=== PATIENT | female | born 1960 | race African-American/Black ===

== ENCOUNTER 2021-01-12 06:54 | Outpatient (CLI) | payer MEDICARE, SELFPAY ==
--- NOTE | 2021-01-22 13:23 | WPDHOMESLEEP ---
Sleep Study - Home Unattended Date of Study: 01/12/21 <Alicia Mauro DO - Last Filed: 01/22/21 13:44> Ordering Provider: Codi Scanlon NP <Alicia Mauro DO - Last Filed: 01/22/21 13:44> Interpreting Provider: Alicia Mauro DO <Alicia Mauro DO - Last Filed: 01/22/21 13:44> Home Sleep Study Type: Apnea Link Air <Alicia Mauro DO - Last Filed: 01/22/21 13:44> Height: 1.68 m <Alicia Mauro DO - Last Filed: 01/22/21 13:44> Weight: 111.13 kg <Alicia Mauro DO - Last Filed: 01/22/21 13:44> Body Mass Index: 39.5 <Alicia Mauro DO - Last Filed: 01/22/21 13:44> Neck Circumference (inches): 17 <Alicia Mauro DO - Last Filed: 01/22/21 13:44> [place]: 4 <Alicia Mauro DO - Last Filed: 01/22/21 13:44> Reason for Sleep Study The patient states that she began experiencing apneic episodes and night him with a week short breath for the past few months. <Alicia Mauro DO - Last Filed: 01/22/21 13:44> Sleep History The patient is a 60-year-old female with hypertension and had a home sleep test ordered by her primary care due to sleep disturbances . The patient states that she often awakens from sleep short of breath. She frequently awakens at night with heartburn, belching or cough. He constantly snores loudly enough that others complain. She really has trouble sleeping when she have [place]. Six he frequently wakes up gasping for breath throughout the night. She rarely sweats excessively at night. She rarely has heart palpitations throughout the night. She frequently falls asleep during the day but never while driving. The patient denies sleep paralysis, cataplexy hypnagogic/hypnopompic hallucinations. She is currently retired. She rarely has nightmares. She often has thoughts racing through her mind and frequently feels anxious. She rarely feels sad or depressed. She frequently has muscular tension and notices parts of her body jerk. She takes denies kicking throughout the night. She frequently experiences crawling and aching feelings in her legs. She frequently experiences leg pain throughout the night. She denies grinding her teeth during sleep waking up with morning to help pain. She is really bothered by pain during the day but is often awakened by pain throughout the night. She often wakes up feeling stiff in the morning with sore and achy muscles. She currently goes to bed at 10:00 p.m. on the week days and does not have specified bedtime on the weekends. It does not take her longer to fall asleep but she does take melatonin. She wakes up frequently throughout the night to urinate. She typically gets 6-7 hours of sleep most nights. When she awakens throughout the night she will sometimes to possible sore rate. She usually wakes up at 8:00 a.m. on the the weekdays and weekends. She currently lives at home alone. She denies drinking any caffeinated beverages 2 hours prior to bedtime. She does not engage in physical exercise before bedtime. He does not report falling asleep but she will watch television. She does takes naps in the afternoon and evening and she does feel refreshed afterwards. The patient denies tobacco, alcohol recreational drug use. She does drink 2 caffeinated beverages per week. <Alicia Mauro DO - Last Filed: 01/22/21 13:44> [facility]LY [facility], [facility] Past Medical History Medical History: Medical History Acid reflux Hypertension <Alicia Mauro DO - Last Filed: 01/22/21 13:44> Surgical History Surgical History: Surgical History History of eye surgery History of partial hysterectomy History of total knee replacement <Alicia Mauro DO - Last Filed: 01/22/21 13:44> Family History Family History: Family History (Reviewed 01/22/21 @ 1
[2021-01-22 13:32] VITALS: BMI 39.5
== END 2021-01-13 13:49 | disposition home or self-care (01) ==
LOC: ANHCSM 06:55
PROVIDERS: PCP Family Medicine; Visit Provider Nurse Practitioner
DX: G47.10 Hypersomnia, unspecified (principal); G47.33 Obstructive sleep apnea (adult) (pediatric)
CPT/HCPCS: 95806

== ENCOUNTER 2021-01-14 11:35 | Outpatient (CLI) | payer MEDICARE, SELFPAY ==
--- NOTE | ~2021-01-14 | MM_ITS ---
EXAMINATION: MM screening joey BI w olivier HISTORY: Screening mammogram TECHNIQUE: Craniocaudal and mediolateral oblique 3-D tomosynthesis images were obtained and synthetic 2-D images were generated. CAD analysis was submitted and interpreted. COMPARISON: No prior mammogram is available for comparison at this institution. BREAST PARENCHYMAL COMPOSITION: The breasts are heterogeneously dense, which may obscure small masses . FINDINGS: RIGHT BREAST: There is no evidence of suspicious mass, calcification, or architectural distortion to suggest malignancy. LEFT BREAST: There is a possible mass in the posterior third of the inner breast best appreciated 6 c m from the nipple on the craniocaudal view. IMPRESSION: 1. Possible left breast mass. 2. Additional mammographic views and possible breast ultrasound are recommended. BI-RADS Category 0: Incomplete: Needs additional imaging evaluation. Reviewed, dictated and finalized at location A. IMPRESSION: 1. Possible left breast mass. 2. Additional mammographic views and possible breast ultrasound are recommended . BI-RADS Category 0: Incomplete: Needs additional imaging evaluation.
== END 2021-01-14 11:36 | disposition home or self-care (01) ==
PROVIDERS: PCP Nurse Practitioner; Visit Provider Nurse Practitioner
DX: Z12.31 Encounter for screening mammogram for malignant neoplasm of breast (principal); R92.8 Other abnormal and inconclusive findings on diagnostic imaging of breast
CPT/HCPCS: 77063; 77067

== ENCOUNTER 2021-02-04 12:02 | Outpatient (CLI) | payer MEDICARE, SELFPAY ==
--- NOTE | ~2021-02-04 | MMUS_ITS ---
EXAMINATION: MM diagnostic joey BI w olivier, US breast BI complete HISTORY: Possible left breast mass reported on 01/14/2021 screening mammogram. Probable benign right breast masses reported on outside imaging examination. TECHNIQUE: Additional 3-D tomosynthesis images of both breasts were performed and synthetic 2-D image s were generated. CAD analysis was submitted and interpreted. High resolution bilateral complete nusrat st ultrasound including all 4 quadrants and subareolar areas was performed. COMPARISON: 01/14/2021 bilateral digital screening mammogram FINDINGS: MAMMOGRAPHIC FINDINGS: 5 mm mass is noted in the upper outer right breast (MLO Tomosynthesis image 20/80). There is heterogeneous dense stroma which may obscure additional masses. No malignant calcification, architectural distortion, skin thickening or retraction is evident. ULTRASOUND: Right breast 8:00 5 cm from nipple: There is an antiparallel irregular hypoechoic mass measuring up t o 3.6 mm depth, 3 mm width. This is suspicious for small malignancy. Ultrasound-guided biopsy is junior mmended. Scattered small parallel hypoechoic lesions measuring 4 mm or less are noted in the right breast. At 10:00 8 cm from the nipple there is a circumscribed hypoechoic 3.6 x 4.8 mm lesion which correspon ds to the mammographic finding. No internal vascularity is noted nor any posterior shadowing. Ultraso und-guided biopsy is recommended. Left breast: 12:00 2 cm from nipple: Parallel circumscribed hypoechoic 3.3 x 4.5 mm lesion without internal vascul arity or suspicious shadowing 12:00 4 cm from nipple: Similar parallel smaller than described mass without internal vascularity or shadowing 2:00 8 cm from nipple: Similar parallel circumscribed hypoechoic up to 4.2 mm lesion without internal vascularity or posterior shadowing 3:00 6 cm from nipple: Parallel circumscribed hypoechoic 6 x 4.1 x 5 mm hypoechoic lesion without int ernal vascularity or shadowing, likely benign 4:00 8 cm from nipple: Similar parallel circumscribed hypoechoic up to 5.4 mm lesion without internal vascularity or posterior shadowing 6:00 4 cm from nipple: Parallel circumscribed hypoechoic solid lesion measuring 6 x 10.4 x 10.5 mm, w ith some calcifications, without internal vascularity or posterior shadowing, likely benign, probably calcified fibroadenoma IMPRESSION: 1. Suspicious abnormalities of right breast at 8:00 5 cm from nipple and 10:00 8 cm from nipple 2. Ultrasound-guided biopsy of right breast 8:00 and 10:00 lesions is recommended BI-RADS category 4, suspicious findings. Dr. Wick telephoned the report and ultrasound guided biopsy recommendation on 02/04/2021 [address] Heath. Reviewed, dictated and finalized at location A. IMPRESSION: 1. Suspicious abnormalities of right breast at 8:00 5 cm from nipple and 10:00 8 cm from nipple 2. Ultrasound-guided biopsy of right breast 8:00 and 10:00 lesions is recommend ed BI-RADS category 4, suspicious findings. Dr. Wick telephoned the report and ultrasound guided biopsy recommendation on at [address] Heath.
== END 2021-02-04 12:03 | disposition home or self-care (01) ==
LOC: ANHIMG 12:05
PROVIDERS: PCP Family Medicine; Visit Provider Nurse Practitioner
DX: R92.8 Other abnormal and inconclusive findings on diagnostic imaging of breast (principal)
CPT/HCPCS: 76641; 77062; 77066; G0279

== ENCOUNTER 2021-03-18 07:31 | Outpatient (CLI) | payer MEDICARE, SELFPAY ==
--- NOTE | 2021-04-07 12:55 | WPDSLEEPSTUD ---
Sleep Study Date of Study: 03/18/21 <Alicia Mauro, DO - Last Filed: 04/07/21 14:08> Ordering Provider: Codi Scanlon NP <Alicia Mauro, DO - Last Filed: 04/07/21 14:08> Interpreting Physician: Alicia Mauro DO <Alicia Mauro, DO - Last Filed: 04/07/21 14:08> Sleep Study Type: CPAP Titration <Alicia Mauro DO - Last Filed: 04/07/21 14:08> Height: 1.52 m <Alicia Mauro DO - Last Filed: 04/07/21 14:08> Weight: 110.223 kg <Alicia Mauro DO - Last Filed: 04/07/21 14:08> Body Mass Index: 47.5 <Alicia Mauro DO - Last Filed: 04/07/21 14:08> Neck Circumference (inches): 17 <Alicia Mauro DO - Last Filed: 04/07/21 14:08> [place]: 3 <Alicia Mauro DO - Last Filed: 04/07/21 14:08> Reason for Sleep Study She had an HSAT done on 01/12/21 that showed an AHI of 23.9. It was recommended that she have a PAP Titration due to having 11 central apneas and spending 20 minutes with an SpO2 less than 88%. <Alicia Mauro, DO - Last Filed: 04/07/21 14:08> Sleep History The patient is a 60-year-old female with hypertension and had a home sleep test ordered by her primary care due to sleep disturbances . The patient states that she often awakens from sleep short of breath. She frequently awakens at night with heartburn, belching or cough. He constantly snores loudly enough that others complain. She really has trouble sleeping when she has a cold. She frequently wakes up gasping for breath throughout the night. She rarely sweats excessively at night. She rarely has heart palpitations throughout the night. She frequently falls asleep during the day but never while driving. The patient denies sleep paralysis, cataplexy hypnagogic/hypnopompic hallucinations. She is currently retired. She rarely has nightmares. She often has thoughts racing through her mind and frequently feels anxious. She rarely feels sad or depressed. She frequently has muscular tension and notices parts of her body jerk. She takes denies kicking throughout the night. She frequently experiences crawling and aching feelings in her legs. She frequently experiences leg pain throughout the night. She denies grinding her teeth during sleep waking up with morning to help pain. She is really bothered by pain during the day but is often awakened by pain throughout the night. She often wakes up feeling stiff in the morning with sore and achy muscles. She currently goes to bed at 10:00 p.m. on the week days and does not have specified bedtime on the weekends. It does not take her longer to fall asleep but she does take melatonin. She wakes up frequently throughout the night to urinate. She typically gets 6-7 hours of sleep most nights. When she awakens throughout the night she will sometimes to possible sore rate. She usually wakes up at 8:00 a.m. on the the weekdays and weekends. She currently lives at home alone. She denies drinking any caffeinated beverages 2 hours prior to bedtime. She does not engage in physical exercise before bedtime. He does not report falling asleep but she will watch television. She does takes naps in the afternoon and evening and she does feel refreshed afterwards. The patient denies tobacco, alcohol recreational drug use. She does drink 2 caffeinated beverages per week. <Alicia Mauro DO - Last Filed: 04/07/21 14:08> [facility] Past Medical History Medical History: Medical History Abnormal mammogram of left breast Acid reflux Breast mass, right Hypertension <Alicia Mauro DO - Last Filed: 04/07/21 14:08> Surgical History Surgical History: Surgical History History of eye surgery History of partial hysterectomy History of total knee replacement <Alicia Mauro DO - Last Filed:
[2021-04-07 13:01] VITALS: BMI 47.5
== END 2021-03-19 06:45 | disposition home or self-care (01) ==
LOC: ANHCSM 07:31
PROVIDERS: PCP Family Medicine; Visit Provider Nurse Practitioner
DX: G47.33 Obstructive sleep apnea (adult) (pediatric) (principal)
CPT/HCPCS: 95811

== ENCOUNTER 2021-04-04 16:29 | Emergency (ER) | payer MEDICARE, SELFPAY ==
[2021-04-04] VITALS (24 sets, daily range): BP systolic 153–231; BP diastolic 82–132; PULSE 76–87; RESP 14–25; TEMP 36.6; O2SAT 96–100
--- NOTE | ~2021-04-04 | CT_ITS ---
EXAMINATION: CT brain wo con DATE: 04/04/2021 18:33 INDICATION: Headache, dizziness. TECHNIQUE: Computed tomography (CT) of the head was performed without intravenous contrast. Sagittal and coronal reconstructions were performed. Automated exposure control and iterative reconstruction t echnique were employed. The dose-length product was 681.00 mGy-cm. COMPARISON: None FINDINGS: No acute intracranial hemorrhage, acute infarction or abnormal extra axial fluid collection. There is mild to moderate scattered white matter hypoattenuation consistent with chronic small vessel ischemi c disease. Ventricles are normal and symmetric. No mass/mass effect. Changes of bilateral intraocula r lens replacement. Mild mucosal thickening at the bilateral ethmoid sinuses. The orbits and mastoid air cells are normal. IMPRESSION: 1. No acute intracranial process. 2. Mild to moderate scattered white matter hypoattenuation consistent with chronic small vessel ische sue disease. Reviewed, dictated and finalized at [facility]. NGUAL SPEECH THERAPIST IMPRESSION: 1. No acute intracranial process. 2. Mild to moderate scattered white matter hypoattenuation consistent with hvac designer sully small vessel ischemic disease.
--- NOTE | 2021-04-04 18:08 | ECG_ITS ---
Measurements Intervals [place] Rate: 78 P: 17 GA: 161 QRS: -25 QRSD: 96 T: 19 QT: 370 QTc: 422 Interpretive Statements SINUS RHYTHM VOLTAGE CRITERIA FOR LVH CANNOT RULE OUT SEPTAL INFARCT, AGE INDETERMINATE ABNORMAL ECG Electronically Signed On 04-04-2021 21:09:36 [employer]CTION PROJECT MGR by Buck Mello D.O.
--- NOTE | 2021-04-04 18:11 | ED.GENADULT ---
HPI - General Adult General Chief complaint: Recheck/Abnormal Lab/Rx Stated complaint: high blood pressure Time Seen by Provider: 04/04/21 18:08 Source: patient Mode of arrival: ambulatory Limitations: no limitations History of Present Illness HPI narrative: Patient is a 61-year-old female complaining of elevated blood pressure, 170s over 80s, accompanied by mild headache at home. Patient currently denies any headache or dizziness. Patient denies any speech or visual disturbance, focal weakness or numbness, unsteady gait, chest pain, shortness of breath, abdominal pain, nausea, or vomiting. Related Data Allergies Allergy/AdvReac Type Severity Reaction Status Date / Time enalapril Allergy Mild Unknown Verified 04/04/21 18:09 DIPHENHYDRAMINE HCL Allergy Mild Difficulty Uncoded 04/04/21 18:09 Breathing Review of Systems Review of Systems: All systems reviewed & are unremarkable except as noted in HPI and below Constitutional: Constitutional: Denies body ache(s), Denies chills, Denies excessive sweating, Denies fatigue, Denies fever(s), Denies headache(s), Denies lethargy, Denies malaise, Denies weakness and Denies weight loss Eyes: Eyes: Denies blurry vision, Denies change in vision and Denies loss of vision ENT: Denies dizziness, Denies ear discharge, Denies headache(s), Denies lip swelling, Denies epistaxis, Denies nasal congestion, Denies neck pain, Denies throat swelling and Denies tongue swelling Cardiovascular: Cardiovascular: Denies chest pain, Denies chest pain at rest, Denies chest pain with activity, Denies diaphoresis, Denies rapid heart rate, Denies edema, Denies irregular heart rhythm, Denies lightheadedness, Denies palpitations, Denies dyspnea and Denies dyspnea on exertion Respiratory: Respiratory: Denies chest congestion, Denies cough, Denies hemoptysis, Denies dyspnea and Denies dyspnea on exertion Gastrointestinal: Gastrointestinal: Denies abdominal pain, Denies melena, Denies hematochezia, Denies diarrhea, Denies nausea, Denies vomiting and Denies hematemesis Musculoskeletal: Musculoskeletal: Denies abnormal gait, Denies deformity, Denies joint swelling, Denies limited range of motion, Denies neck pain and Denies numbness Neurologic: Denies Abnormal speech present, Denies abnormal gait, Denies confusion, Denies dizziness, Denies focal weakness, Denies loss of vision, Denies numbness, Denies Other visual disturbances, Denies Sensory deficit (Neuro) and Denies weakness Psychiatric: Psychiatric: Denies confusion, Denies depression, Denies auditory hallucinations, Denies homicidal ideation and Denies suicidal ideation Endocrine: Endocrine: Denies cold intolerance, Denies excessive sweating, Denies fatigue, Denies heat intolerance and Denies palpitations Hematologic/Lymphatic: Hematologic/Lymphatic: Denies easy bleeding and Denies easy bruising Allergic/Immunologic: Allergic/Immunologic: Denies lip swelling, Denies throat swelling and Denies tongue swelling PMFSH Past Medical History Medical History Abnormal mammogram of left breast Acid reflux Breast mass, right Hypertension Surgical History Surgical History History of eye surgery History of partial hysterectomy History of total knee replacement Family History Family History Father Hypertension Social History Social History Smoking status: Never smoker Alcohol intake: never Substance use: never Substance use type: does not use Exam Const: General: cooperative, healthy appearing, comfortable, no acute distress, well developed, alert and awake; No confusion Orientation/consciousness: oriented to person, oriented to place, oriented to time, patient oriented x3 and No confusion Limitations: no limitations HENMT: Head: n
[2021-04-04 18:45] LABS: Basophils Absolute Auto 0.1 K/mm3 (0.0-0.1); Basophils Percent Auto 0.7 % (0.2-1.2); Eosinophils Absolute Auto 0.2 K/mm3 (0-0.3); Eosinophils Percent Auto 2.3 % (0-4.4); Hematocrit 42.4 % (37.0-47.0); Hemoglobin 14.3 g/dL (12.0-15.0); Immature Granulocyte Absolute 0.01 K/mm3 (0.00-0.031); Immature Granulocyte Percent A 0.1 % (0-0.5); Lymphocytes Absolute Auto 2.58 K/mm3 (0.9-3.2); Lymphocytes Percent Auto 34.7 % (18.3-44.2); Mean Corpuscular HGB Conc 33.7 g/dl (32-36); Mean Corpuscular Hemoglobin 28.7 pg (26-34); Mean Corpuscular Volume 85.1 fl (80-100); Mean Platelet Volume 9.9 fl (7.4-10.4); Monocytes Absolute Auto 0.5 K/mm3 (0.1-0.6); Neutrophils Absolute Auto 4.1 K/mm3 (1.3-6.7); Neutrophils Percent Auto 55.2 % (45.5-73.1); Platelet Count Result 294 k/mm3 (150-375); Red Blood Count 4.98 M/mm3 (4.2-5.4); Red Cell Distribution Width 16.3 % (11.5-14.5); White Blood Count 7.4 K/mm3 (4.5-10.0)
[2021-04-04] MEDS: LABETALOL HCL INJ 100 MG/20 ML VIAL 20 MG IV PUSH (18:53)
[2021-04-04 19:37] LABS: Anion Gap 4 mmol/L (8-16); Blood Urea Nitrogen 17 mg/dL (7-17); Calcium 9.5 mg/dL (8.4-10.2); Carbon Dioxide 26 mmol/L (22-30); Chloride 106 mmol/L (98-107); Estimated CRCL calculation 79 ml/min; Estimated Glomerular Filt Rate > 60; Glucose 106 mg/dL (65-110); Potassium 3.6 mmol/L (3.4-5.0); Sodium 136 mmol/L (137-145)
[2021-04-04 19:49] LABS: Troponin I < 0.012 ng/mL (0.000-0.034)
== END 2021-04-04 21:30 | disposition home or self-care (01) ==
PROVIDERS: Emergency Provider Emergency Medicine; PCP Nurse Practitioner
DX: I16.0 Hypertensive urgency (principal); I10 Essential (primary) hypertension; K21.9 Gastro-esophageal reflux disease without esophagitis; R94.31 Abnormal electrocardiogram [ECG] [EKG]
CPT/HCPCS: 36415; 70450; 80048; 84484; 85025; 93005; 96374; 99284

== ENCOUNTER 2021-04-10 19:11 | Emergency (ER) | payer MEDICARE, SELFPAY ==
[2021-04-10] VITALS (14 sets, daily range): BP systolic 150–206; BP diastolic 91–107; PULSE 72–90; RESP 16–24; TEMP 37.2; O2SAT 97–99
[2021-04-10] MEDS: METOPROLOL TARTRATE 50 MG TAB PO (20:20)
--- NOTE | 2021-04-10 20:28 | ED.GENADULT ---
HPI - General Adult General Chief complaint: Recheck/Abnormal Lab/Rx Stated complaint: high blood pressure Time Seen by Provider: 04/10/21 19:47 History of Present Illness HPI narrative: 61-year-old female with history of hypertension presents the emergency department for evaluation of elevated blood pressures. Patient was evaluated for elevated blood pressure on [place] and had her losartan increased to 100 mg once a day. Patient is continue to take her metoprolol 50 mg twice daily. Patient states that she has been checking her blood pressures at home and noticed they still continued to be elevated. Patient does report having a mild headache today. Patient describes it as not a bad headache . Patient does have some shortness of breath but denies any associated chest pain. Patient denies any associated nausea vomiting or diarrhea. Related Data Allergies Allergy/AdvReac Type Severity Reaction Status Date / Time enalapril Allergy Mild Unknown Verified 04/10/21 20:43 DIPHENHYDRAMINE HCL Allergy Mild Difficulty Uncoded 04/10/21 20:43 Breathing Review of Systems Review of Systems: CONSTITUTIONAL: Denies fever, chills, or sweats. EYES: Denies visual changes, redness, or discharge. ENT: Denies rhinorrhea, congestion, sore throat, or otalgia. CARDIOVASCULAR: Denies chest pain, palpitations, or edema. RESPIRATORY: Does report some shortness of breath at baseline. GASTROINTESTINAL: Denies abdominal pain, nausea, vomiting, or diarrhea. GENITOURINARY: Denies dysuria or hematuria. SKIN: Denies rash or itching. MUSCULOSKELETAL: Denies back pain, joint pain, or myalgia. NEUROLOGIC: Does report a mild headache denies any numbness or weakness. PSYCHIATRIC: Denies anxiety or depression. FORMERLY [facility] Past Medical History Medical History Abnormal mammogram of left breast Acid reflux Breast mass, right Hypertension Surgical History Surgical History History of eye surgery History of partial hysterectomy History of total knee replacement Family History Family History Father Hypertension Social History Social History Smoking status: Never smoker Alcohol intake: never Substance use: never Substance use type: does not use Exam Narrative: APPEARANCE: Well appearing, no pain in distress, well-nourished. HEAD: normocephalic, atraumatic. EYES: PERRLA/EOMI, conjunctivae clear. NOSE: Normal no drainage NECK: Supple. No adenopathy, no masses. RESPIRATORY: Airway patent, respirations nonlabored. Clear to auscultation bilaterally, no rales, rhonchi, wheezing. CARDIOVASCULAR: Regular rate and rhythm without murmurs rubs or gallops. MUSCULOSKELETAL: Moves all extremities. Strength/ROM intact, No edema, No calf tenderness. NEURO: Alert. Cranial nerves II through XII intact. Good gait. Good coordination SKIN: Warm, dry. Normal Color PSYCHIATRIC: Normal affect/mood. Course Course Emergency Course: 60-year-old female presenting to the emergency department for evaluation of elevated blood pressure. Patient was given her evening dose of metoprolol. In response to this patient's blood pressure did improve to 150/90. Patient did feel improved. Patient was updated on the results of her labs and plan for treatment at home. Patient will have close follow-up with her primary care physician. Since patient's blood pressure adjusted well after taking her home dose of her evening metoprolol patient will not have any additional changes made to her blood pressure medications in order to prevent hypotension. Patient disposition is discharge to home Clinical impression is hypertension and headache Patient was stable at time of discharge from the emergency department. Vital Signs Vital signs: Vital Signs Temperature 98.9 F 04/10/21 19:25
[2021-04-10 20:33] LABS: Basophils Percent Auto 0.3 % (0.2-1.2); Eosinophils Absolute Auto 0.1 K/mm3 (0-0.3); Eosinophils Percent Auto 2.3 % (0-4.4); Hematocrit 41.8 % (37.0-47.0); Hemoglobin 14.2 g/dL (12.0-15.0); Immature Granulocyte Absolute 0.02 K/mm3 (0.00-0.031); Immature Granulocyte Percent A 0.3 % (0-0.5); Lymphocytes Absolute Auto 2.27 K/mm3 (0.9-3.2); Lymphocytes Percent Auto 37.2 % (18.3-44.2); Mean Corpuscular Hemoglobin 28.9 pg (26-34); Mean Platelet Volume 9.7 fl (7.4-10.4); Monocytes Absolute Auto 0.4 K/mm3 (0.1-0.6); Monocytes Percent Auto 7.2 % (2.6-8.5); Neutrophils Absolute Auto 3.2 K/mm3 (1.3-6.7); Neutrophils Percent Auto 52.7 % (45.5-73.1); Platelet Count Result 308 k/mm3 (150-375); Red Blood Count 4.92 M/mm3 (4.2-5.4); Red Cell Distribution Width 15.9 % (11.5-14.5); White Blood Count 6.1 K/mm3 (4.5-10.0)
--- NOTE | 2021-04-10 20:42 | PC.NURSE ---
Assumed care of pt at this time, report taken from mikhail JUDD. Pt alert and upright on stretcher
[2021-04-10 20:55] LABS: Alanine Aminotransferase 23 U/L (4-35); Albumin Level 4.1 g/dL (3.5-5.1); Alkaline Phosphatase 93 U/L (38-126); Anion Gap 7 mmol/L (8-16); Aspartate Amino Transferase 46 U/L (14-36); Bilirubin,Total 0.6 mg/dL (0.2-1.3); Blood Urea Nitrogen 18 mg/dL (7-17); Calcium 9.4 mg/dL (8.4-10.2); Carbon Dioxide 29 mmol/L (22-30); Chloride 100 mmol/L (98-107); Estimated CRCL calculation 70 ml/min; Estimated Glomerular Filt Rate > 60; Glucose 108 mg/dL (65-110); Potassium 3.8 mmol/L (3.4-5.0); Sodium 136 mmol/L (137-145)
== END 2021-04-10 21:53 | disposition home or self-care (01) ==
PROVIDERS: Emergency Provider Emergency Medicine; PCP Family Medicine
DX: I10 Essential (primary) hypertension (principal); R51.9 Headache, unspecified
CPT/HCPCS: 36415; 80053; 85025; 99283; A9270

== ENCOUNTER 2021-12-16 09:46 | Outpatient (CLI) | payer MEDICARE, SELFPAY ==
[2021-12-16 18:58] LABS: Alanine Aminotransferase 26 U/L (6-35); Albumin Level 4.3 g/dL (3.5-5.1); Alkaline Phosphatase 102 U/L (38-126); Anion Gap 11 mmol/L (8-16); Aspartate Amino Transferase 49 U/L (14-36); Bilirubin,Total 0.6 mg/dL (0.2-1.3); Blood Urea Nitrogen 16 mg/dL (7-17); Calcium 9.7 mg/dL (8.4-10.2); Carbon Dioxide 29 mmol/L (22-30); Chloride 101 mmol/L (98-107); Cholesterol 189 mg/dL (0-200); Estimated Glomerular Filt Rate > 60; Glucose 88 mg/dL (65-110); HDL Direct 60 mg/dL; Potassium 4.6 mmol/L (3.4-5.0); Sodium 141 mmol/L (137-145); Triglycerides 76 mg/dL (<150)
[2021-12-16 19:07] LABS: Basophils Percent Auto 0.5 % (0.2-1.2); Eosinophils Absolute Auto 0.1 K/mm3 (0-0.3); Eosinophils Percent Auto 2.4 % (0-4.4); Hematocrit 43.4 % (37.0-47.0); Hemoglobin 14.5 g/dL (12.0-15.0); Immature Granulocyte Absolute 0.01 K/mm3 (0.00-0.031); Immature Granulocyte Percent A 0.2 % (0-0.5); Lymphocytes Absolute Auto 2.34 K/mm3 (0.9-3.2); Lymphocytes Percent Auto 39.9 % (18.3-44.2); Mean Corpuscular HGB Conc 33.4 g/dl (32-36); Mean Corpuscular Hemoglobin 28.5 pg (26-34); Mean Corpuscular Volume 85.4 fl (80-100); Mean Platelet Volume 10.1 fl (7.4-10.4); Monocytes Absolute Auto 0.4 K/mm3 (0.1-0.6); Monocytes Percent Auto 7.2 % (2.6-8.5); Neutrophils Absolute Auto 2.9 K/mm3 (1.3-6.7); Neutrophils Percent Auto 49.8 % (45.5-73.1); Platelet Count Result 360 k/mm3 (150-375); Red Blood Count 5.08 M/mm3 (4.2-5.4); Red Cell Distribution Width 16.5 % (11.5-14.5); White Blood Count 5.9 K/mm3 (4.5-10.0)
[2021-12-16 19:16] LABS: LDL Cholesterol Direct 80 mg/dL
[2021-12-16 19:37] LABS: Vitamin D 25 Hydroxy 50.9 ng/mL
[2021-12-16 20:05] LABS: Hemoglobin A1C 5.8 % (<5.7)
== END 2021-12-16 09:47 | disposition home or self-care (01) ==
LOC: ANHGOSHLAB 09:49
PROVIDERS: PCP Family Medicine; Visit Provider Nurse Practitioner
DX: E78.5 Hyperlipidemia, unspecified (principal); I10 Essential (primary) hypertension; E55.9 Vitamin D deficiency, unspecified; R73.9 Hyperglycemia, unspecified; R53.83 Other fatigue
CPT/HCPCS: 36415; 80053; 80061; 82306; 83036; 84443; 85025

== ENCOUNTER 2022-11-11 12:18 | Outpatient (CLI) | payer MEDICARE, SELFPAY ==
--- NOTE | 2022-11-11 | ECHO_ITS ---
Patient Info Name: Rochelle Mccord Age: 62 years : 1960 Gender: Female Ht: 60 in Wt: 235 lbs BSA: 2.19 m2 HR: 72 bpm BP: 132 / 75 mmHg Heart Rhythm: Sinus Rhythm Technical Quality: Fair Exam Date: 11/11/2022 12:40 PM Exam Location: [facility] Pulmonary Patient Status: Outpatient Admit Date: 11/11/2022 Staff Ordering Physician: Elenita, Carolyn Perdue MD Psych Arnp: Bree Paz RDCS Attending Provider: Elenita, Carolyn Perdue MD Referring Physician: Elenita WHALEY; Exam Type: CA echo doppler color flow Study Info Indications R94.31 - Abnormal electrocardiogram ECG EKG Complete two-dimensional, color flow and Doppler transthoracic echocardiogram is performed. Summary 1. Complete two-dimensional, color flow and Doppler transthoracic echocardiogram is performed. 2. Normal left ventricular size with mild concentric hypertrophy. Good systolic function of all segments with ejection fraction of 63%. The global longitudinal strain is mildly diminished at -15% suggesting some early systolic dysfunction. Grade 1 diastolic dysfunction is present. 3. Mild left atrial enlargement. 4. Mild pulmonary hypertension, estimated pulmonary arterial systolic pressure is 39 mmHg. 5. No significant valve disease. 6. Normal sinus rhythm. Left Ventricle Left ventricular chamber dimension is normal. Left ventricular systolic function is normal, estimated at Empty. There is mildly increased left ventricular wall thickness. Left ventricular septal wall motion is normal. The left ventricular diastolic function is grade I diastolic dysfunction. Global longitudinal strain is normal at -15 %. Right Ventricle Right ventricular chamber dimension is normal. Right ventricular systolic function is normal. Left Atria Left atrial chamber dimension is mildly enlarged. Right Atria Right atrial chamber dimension is normal. Aortic Valve The aortic valve is trileaflet. There is no aortic valve sclerosis. There is no aortic valve stenosis. There is trace aortic valve regurgitation. Pulmonic Valve The pulmonic valve is normal. There is no pulmonic valve stenosis. There is no pulmonic regurgitation. Mitral Valve The mitral valve has normal leaflets. There is no mitral valve stenosis. There is no mitral valve regurgitation. Tricuspid Valve The tricuspid valve leaflets are normal. There is no significant tricuspid valve stenosis. There is trace tricuspid valve regurgitation. Mild pulmonary hypertension, estimated pulmonary arterial systolic pressure is 39 mmHg. Pericardium/Pleural The pericardium appears normal. There is no pericardial effusion. Inferior Vena Cava Normal inferior vena cava with >50% collapse upon inspiration consistent with Empty right atrial pressure, 10 mmHg. Aorta The aortic root size at the sinus of Valsalva is normal. The prox ascending aorta size is normal. Left Ventricular Outflow Tract Name Value Normal LVOT 2D LVOT Diameter 2.0 cm LVOT Doppler LVOT Peak Gradient 5 mmHg LVOT Mean Gradient 3 mmHg LVOT VTI 26 cm LVOT VTI/AV VTI Ratio
== END 2022-11-11 12:19 | disposition home or self-care (01) ==
PROVIDERS: PCP Internal Medicine; Visit Provider Family Medicine
DX: R94.31 Abnormal electrocardiogram [ECG] [EKG] (principal); I51.7 Cardiomegaly; I27.20 Pulmonary hypertension, unspecified; I42.2 Other hypertrophic cardiomyopathy
CPT/HCPCS: 93306

== ENCOUNTER 2023-08-25 09:26 | Outpatient (CLI) | payer MEDICARE, SELFPAY ==
--- NOTE | 2023-08-25 | EST_ITS ---
Patient Info Name: Rochelle Mccord Age: 63 years : 1960 Gender: Female Ht: 60 in Wt: 230 lbs BSA: 2.17 m2 HR: 65 bpm BP: 142 / 72 mmHg Heart Rhythm: Sinus Rhythm Exam Date: 08/25/2023 10:38 AM Exam Location: Echo Lab Patient Status: Outpatient Admit Date: 08/25/2023 Staff Ordering Physician: Anton, Zoey BOBBY Attending Provider: Anton, Zoey BOBBY Exercise Technologist: Roz Waters CT Exercise Physician: Buck Mello DO Exam Type: CA stress yohana w NM Study Info Indications R07.89 - Other chest pain A regadenoson stress test was performed. Summary 1. 1. Negative lexiscan stress test for ischemic ST changes by ECG criteria. 2. 2. Stable hemodynamics throughout the test. 3. 3. Nuclear scan to follow and will be reported separately. Please correlate with it. 4. 4. Patient informed of the above results. Protocol: Lexiscan Stress ECG Details Stage: REST Duration (min): 1 min : 3 sec HR (bpm): 65 SBP (mmHg): 142 DBP (mmHg): 72 Stage: REST Duration (min): 7 min : 13 sec HR (bpm): 63 SBP (mmHg): 142 DBP (mmHg): 72 Stage: STAGE 1 Duration (min): 1 min : 0 sec HR (bpm): 81 SBP (mmHg): 134 DBP (mmHg): 79 Stage: RECOVERY Duration (min): 1 min : 0 sec HR (bpm): 90 SBP (mmHg): 134 DBP (mmHg): 79 Stage: RECOVERY Duration (min): 2 min : 0 sec HR (bpm): 83 SBP (mmHg): 134 DBP (mmHg): 79 Stage: RECOVERY Duration (min): 3 min : 0 sec HR (bpm): 82 SBP (mmHg): 133 DBP (mmHg): 78 Stage: RECOVERY Duration (min): 3 min : 51 sec HR (bpm): 81 SBP (mmHg): 133 DBP (mmHg): 78 Rest HR: 63 bpm Peak HR: 90 bpm Rest Sys BP: 142 mmHg Peak Sys BP: 134 mmHg Max Pred HR: 155 bpm % Max Pred HR: 58 % Target HR: 132 bpm Max RPP: 12,060 bpm*mmHg Termination Reason: Completed protocol Cardiac Symptoms: Shortness of breath Total Time: 1 min : 0 sec Rest Leon BP: 72 mmHg Peak Leon BP: 79 mmHg Total Dose: 0.4 mg Resting ECG Sinus rhythm. Stress ECG No ST changes. Arrhythmias None. Report Signatures
--- NOTE | ~2023-08-25 | NM_ITS ---
EXAMINATION: NM yohana stress w perfusion DATE: 08/25/2023 11:51 INDICATION: Chest pain TECHNIQUE: Rest images were obtained following intravenous administration of 9.3 mCi Tc99m tetrofosmi n (Myoview). The patient was infused intravenously with Lexiscan (Regadenoson). Then, 30.5 mCi Tc99m tetrofosmin (Myoview) was administered intravenously, and stress images were obtained. Data was recon structed into short axis and horizontal and vertical long axis SPECT images. Gated SPECT images were also obtained. COMPARISON: None. FINDINGS: There is no definite reversible or fixed perfusion abnormality to suggest ischemia or infar ction. There is normal left ventricular chamber size, wall motion and ejection fraction. Left ventr icular ejection fraction measures >70%. IMPRESSION: 1. Normal myocardial perfusion at rest and during stress. 2. Left ventricular ejection fraction measuring >70%. Reviewed, dictated and finalized at location A.
== END 2023-08-25 09:27 | disposition home or self-care (01) ==
PROVIDERS: PCP Internal Medicine; Visit Provider Internal Medicine
DX: R07.9 Chest pain, unspecified (principal)
CPT/HCPCS: 78452; 93017; A9502; J2785

== ENCOUNTER 2024-01-10 08:27 | Outpatient (CLI) | payer MEDICARE, SELFPAY ==
--- NOTE | ~2024-01-10 | MM_ITS ---
EXAMINATION: MM screening joey BI w olivier HISTORY: Screening TECHNIQUE: Craniocaudal and mediolateral oblique 3-D tomosynthesis images were obtained and synthetic 2-D images were generated. CAD analysis was submitted and interpreted. COMPARISON: Comparison to multiple prior studies sequentially, with oldest reviewed study dated 05/2018. BREAST PARENCHYMAL COMPOSITION: Dense: The breasts are heterogeneously dense, which may obscure small masses FINDINGS: There is no evidence of suspicious mass, calcification, or architectural distortion to sugg est malignancy in either breast. There has been no suspicious interval change. IMPRESSION: 1. No mammographic evidence of malignancy. 2. Recommend routine screening mammography in one year. BI-RADS Category 1: Negative Reviewed, dictated and finalized at location B.
== END 2024-01-10 08:28 | disposition home or self-care (01) ==
PROVIDERS: PCP Internal Medicine; Visit Provider Internal Medicine
DX: Z12.31 Encounter for screening mammogram for malignant neoplasm of breast (principal)
CPT/HCPCS: 77063; 77067

== ENCOUNTER 2024-01-13 20:52 | Emergency (ER) | payer MEDICARE, SELFPAY ==
--- NOTE | ~2024-01-13 | CT_ITS ---
EXAMINATION: CT brain wo con DATE: 01/13/2024 21:55 INDICATION: Blurry vision. Hypertension. TECHNIQUE: Computed tomography (CT) of the head was performed without intravenous contrast. The mA wa s adjusted according to patient size. Iterative reconstruction technique was employed. The dose-lengt h product was 605.33 mGy-cm. COMPARISON: Head CT 04/04/2021 FINDINGS: There are scattered areas of low attenuation in the cerebral white matter. There is no intr acranial hemorrhage, acute infarction, or abnormal intracranial mass lesion. The ventricles are dmitriy l in size. There is mild mucosal thickening in the ethmoid sinuses. The mastoid air cells are normal. IMPRESSION: 1. Stable mild nonspecific cerebral white matter disease, which likely represents chronic small vesse l ischemic disease. Reviewed, dictated and finalized at location A. IMPRESSION: 1. Stable mild nonspecific cerebral white matter disease, which likely represen ts chronic small vessel ischemic disease.
--- NOTE | ~2024-01-13 | XR_ITS ---
EXAMINATION: XR chest 1V DATE: 01/13/2024 22:01 INDICATION: Hypertension. TECHNIQUE: A single frontal view of the chest was obtained. COMPARISON: Chest 2 views 01/30/2013 FINDINGS: There is mild elevation of right hemidiaphragm. A calcified right lung nodule and calcified right hilar and mediastinal lymph nodes are consistent with old granulomatous disease. No pleural ef fusion or pneumothorax. The heart size is normal. IMPRESSION: 1. No acute cardiopulmonary disease. Reviewed, dictated and finalized at location A.
[2024-01-13 20:53] VITALS: BP 145/85; PULSE 78; RESP 20; TEMP 36.6; O2SAT 99
--- NOTE | 2024-01-13 21:38 | ECG_ITS ---
Test Date: 2024-01-13 22:20:10 Measurements Intervals [place] Rate: 70 P: 12 ME: 186 QRS: -34 QRSD: 104 T: 9 QT: 386 QTc: 417 Interpretive Statements SINUS RHYTHM LEFT AXIS DEVIATION [QRS AXIS < -30] MODERATE VOLTAGE CRITERIA FOR LVH, CONSIDER NORMAL VARIANT [MEETS CRITERIA IN ONE OF: R(aVL), S(V1), R(V5), R(V5/V6)+S(V1)] POSSIBLE ANTERIOR MYOCARDIAL INFARCTION , OF INDETERMINATE AGE [30 ms Q WAVE IN V3/V4, OR R < 0.2 mV IN V4] No previous ECG available for comparison Electronically Signed On 01-14-2024 16:18:55 CDT by Bakari Pendleton M.D.
[2024-01-13 22:13] LABS: Basophils Percent Auto 0.5 % (0.2-1.2); Eosinophils Absolute Auto 0.2 K/mm3 (0-0.3); Eosinophils Percent Auto 2.6 % (0-4.4); Immature Granulocyte Absolute 0.01 K/mm3 (0.00-0.031); Immature Granulocyte Percent A 0.2 % (0-0.5); Lymphocytes Absolute Auto 2.41 K/mm3 (0.9-3.2); Lymphocytes Percent Auto 36.9 % (18.3-44.2); Mean Corpuscular HGB Conc 34.1 g/dl (32-36); Mean Corpuscular Hemoglobin 28.9 pg (26-34); Mean Corpuscular Volume 84.5 fl (80-100); Monocytes Absolute Auto 0.5 K/mm3 (0.1-0.6); Monocytes Percent Auto 7.5 % (2.6-8.5); Neutrophils Absolute Auto 3.4 K/mm3 (1.3-6.7); Neutrophils Percent Auto 52.3 % (45.5-73.1); Platelet Count Result 291 k/mm3 (150-375); Red Blood Count 4.85 M/mm3 (4.2-5.4); Red Cell Distribution Width 16.1 % (11.5-14.5); White Blood Count 6.5 K/mm3 (4.5-10.0)
[2024-01-13 22:14] LABS: Add Urine Microscopic? NO; Appearance Urine Clear (Clear); Bilirubin Urine Negative (Negative); Blood Urine Negative (Negative); Color Urine Yellow (Yellow); Glucose Urine UA Negative (Negative); Ketones Urine Negative (Negative); Leukocyte Esterase Ur Negative LEU/UL (Negative); Nitrate Urine Negative (Negative); Protein Urine Negative (Negative); Specific Grav Ur 1.005 (1.001-1.035); Urobilinogen Urine 0.2 mg/dL (<2.0); pH Urine 6.5 (5.0-9.0)
[2024-01-13 22:26] LABS: INR 0.9; Prothrombin Time 12.8 Seconds (11.1-14.7)
[2024-01-13 22:27] LABS: Alanine Aminotransferase 22 U/L (6-35); Albumin Level 4.2 g/dL (3.5-5.1); Alkaline Phosphatase 106 U/L (38-126); Anion Gap 5 mmol/L (4-12); Aspartate Amino Transferase 26 U/L (14-36); Bilirubin,Total 0.5 mg/dL (0.2-1.3); Blood Urea Nitrogen 15 mg/dL (7-17); Carbon Dioxide 29 mmol/L (22-30); Chloride 104 mmol/L (98-107); Estimated CRCL calculation 90 ml/min; Estimated Glomerular Filt Rate > 60; Glucose 100 mg/dL (65-110); Magnesium 1.9 mg/dL (1.6-2.3); Partial Thromboplastin Time 28.2 Seconds (22.3-36.8); Potassium 3.5 mmol/L (3.4-5.0); Sodium 138 mmol/L (137-145)
[2024-01-13 22:30] VITALS: BP 144/85; PULSE 75; RESP 20; O2SAT 100
[2024-01-13 22:38] LABS: NT Pro B Type Natriuretic Pept 41 pg/mL (19.9-100); Troponin I < 0.012 ng/mL (0.000-0.034)
[2024-01-13 23:30] VITALS: BP 135/85; PULSE 72; RESP 19; O2SAT 100
--- NOTE | 2024-01-14 00:53 | ED.GENADULT ---
HPI - General Adult General Chief complaint: Unspecified Stated complaint: HTN, blurred vision R eye LKW 1999 Time Seen by Provider: 01/13/24 21:31 History of Present Illness HPI narrative: Patient is 63-year-old female who presents emergency department with chief complaint of blurry vision and high blood pressure. Patient reports that she has had problems with blood pressure control her primary doctor has been adjusting her blood pressure medicines the patient reports this evening she noticed her blood pressure was elevated had a little bit of blurriness in her vision the patient reports by time she arrived to the emergency department her symptoms had resolved and reports that she had no weakness in arms or legs had a negative fast ED score by EMS and had an NIH stroke scale of 0 upon arrival to the emergency department. Related Data Allergies Allergy/AdvReac Type Severity Reaction Status Date / Time enalapril Allergy Mild Unknown Verified 01/26/22 14:33 DIPHENHYDRAMINE HCL Allergy Mild Difficulty Uncoded 01/26/22 14:33 Breathing Review of Systems Review of Systems: A 10 system review of systems was completed on the patient and is negative except for what is stated in the HPI. Nursing and ancillary documentation was reviewed. FORMERLY [facility] Past Medical History Medical History Abnormal mammogram of right breast Acid reflux Arthritis of both knees Breast mass, right Hypertension Vitamin D deficiency Surgical History Surgical History History of eye surgery (~2009) History of partial hysterectomy (~1980) History of total knee replacement (~2014) 03/2015 R, 08/2015 L Family History Family History Father Hypertension Social History Social History Smoking status: Never smoker Alcohol intake: never Substance use: never Substance use type: does not use Lack of Transportation: No Lack of Food: Never True Current Housing: I Have Housing Concerned About Future Housing: No Difficulty Paying Gas/Electric Bills: No Difficulty Paying for Meds: No Currently Unemployed: No Education: Bachelor's Degree Difficulty w/ Childcare or Family Care: No Living arrangements: alone Occupation/Education: retired Additional occupation/education comments: Social Security Gender identity (if verbalized by the patient): Female Agree to blood products: Yes Exam Narrative: GENERAL: Well-appearing, well-nourished, and in no acute distress. HEAD: Normocephalic, atraumatic. EYES: PERRLA and EOMI. ENT: Nares clear, no rhinorrhea or epistaxis. Mucous membranes moist. NECK: Supple. CHEST: Clear to auscultation. No respiratory distress. HEART: Regular rate and rhythm. No murmur heard. Normal peripheral pulses. ABDOMEN: Soft, nontender, nondistended, normal active bowel sounds. EXTREMITIES: Normal range of motion. No edema. SKIN: Warm, dry, no rash. NEURO: No focal deficits. Alert and oriented x3. PSYCH: Normal mood and affect. Course Vital Signs Vital signs: Vital Signs Temperature 36.6 C 01/13/24 20:53 Pulse Rate 78 01/13/24 20:53 Respiratory Rate 20 01/13/24 20:53 Blood Pressure 145/85 H 01/13/24 20:53 Pulse Oximetry 99 01/13/24 20:53 Oxygen Delivery Room Air 01/13/24 20:53 Temperature 36.6 C 01/13/24 20:53 Pulse Rate 72 01/13/24 23:30 Respiratory Rate 19 01/13/24 23:30 Blood Pressure 135/85 01/13/24 23:30 Pulse Oximetry 100 01/13/24 23:30 Oxygen Delivery Room Air 01/13/24 20:53 Medical Decision Making MDM Narrative Medical decision making narrative: Differential diagnosis includes hypertensive urgency, intracranial hemorrhage, essential hypertension, CVA Patient showed no focal neurological
[2024-01-14 01:35] VITALS: BP 140/86; PULSE 82; RESP 18; O2SAT 97
== END 2024-01-14 01:44 | disposition home or self-care (01) ==
PROVIDERS: Emergency Provider Emergency Medicine; PCP Internal Medicine
DX: I10 Essential (primary) hypertension (principal); E55.9 Vitamin D deficiency, unspecified; K21.9 Gastro-esophageal reflux disease without esophagitis; M17.0 Bilateral primary osteoarthritis of knee; Z96.653 Presence of artificial knee joint, bilateral; Z90.711 Acquired absence of uterus with remaining cervical stump; Z79.899 Other long term (current) drug therapy
CPT/HCPCS: 36415; 70450; 71045; 80053; 81003; 83605; 83735; 83880; 84484; 85025; 85610; 85730; 93005; 99284

== ENCOUNTER 2024-11-30 17:59 | Emergency (ER) | payer MEDICARE, MEDICAID, SELFPAY ==
--- NOTE | ~2024-11-30 | XR_ITS ---
EXAMINATION: XR chest 2V 11/30/2024 18:19 INDICATION: Chest pain PROCEDURE: COMPARISON: FINDINGS: The lungs are clear. The cardiomediastinal silhouette is within normal limits. There are no pleural effusions. There is no pneumothorax suspected. IMPRESSION: 1: NO ACUTE CARDIOPULMONARY DISEASE. Reviewed, dictated and finalized at location O.
--- NOTE | 2024-11-30 18:04 | ECG_ITS ---
Test Date: 2024-11-30 18:10:[address] Rate: 80 P: 45 ND: 172 QRS: -28 QRSD: 97 T: 31 QT: 360 QTc: 416 Interpretive Statements SINUS RHYTHM VOLTAGE CRITERIA FOR LVH BORDERLINE R WAVE PROGRESSION, ANTERIOR LEADS BASELINE ARTIFACT- I, II, AVR, AVL, AVF, V1 BORDERLINE ECG Compared to ECG 01/13/2024 22:20:10 NO SIGNIFICANT CHANGE Electronically Signed On 11-30-2024 20:33:09 CDT by Buck Mello D.O.
[2024-11-30 18:09] VITALS: BP 157/88; PULSE 77; PULSE 80; RESP 18; RESP 20; O2SAT 98
[2024-11-30 18:32] LABS: Hematocrit 41.2 % (37.0-47.0); Hemoglobin 13.7 g/dL (12.0-15.0); Immature Granulocyte Percent A 0.4 % (0-0.5); Lymphocytes Absolute Auto 2.61 K/mm3 (0.9-3.2); Mean Corpuscular HGB Conc 33.3 g/dl (32-36); Mean Corpuscular Hemoglobin 27.6 pg (26-34); Mean Corpuscular Volume 83.1 fl (80-100); Nucleated Red Blood Cells Absolute Auto 0.000 K/mm3 (0.0-0.012); Nucleated Red Blood Cells Perc 0.0 % (0.0-0.2); Platelet Count Result 323 k/mm3 (150-375); Red Blood Count 4.96 M/mm3 (4.2-5.4); White Blood Count 8.4 K/mm3 (4.5-10.0)
[2024-11-30 18:43] LABS: Alanine Aminotransferase 25 U/L (6-35); Albumin Level 4.2 g/dL (3.5-5.1); Alkaline Phosphatase 111 U/L (38-126); Anion Gap 7 mmol/L (4-12); Aspartate Amino Transferase 27 U/L (14-36); Bilirubin,Total 0.5 mg/dL (0.2-1.3); Blood Urea Nitrogen 14 mg/dL (7-17); Calcium 9.4 mg/dL (8.4-10.2); Carbon Dioxide 25 mmol/L (22-30); Chloride 104 mmol/L (98-107); Estimated CRCL calculation 81 ml/min; Estimated Glomerular Filt Rate > 60; Glucose 100 mg/dL (65-110); Lipase 40 U/L (23-300); Potassium 3.7 mmol/L (3.4-5.0); Sodium 136 mmol/L (137-145); Total Protein 8.2 g/dL (6.3-8.2)
[2024-11-30 18:54] LABS: Troponin I < 0.012 ng/mL (0.000-0.034)
--- NOTE | 2024-11-30 18:54 | ED.CHESTPAIN ---
HPI - Chest Pain General Chief Complaint: Chest Pain Stated Complaint: chest tightness Time Seen by Provider: 11/30/24 18:33 History of Present Illness HPI narrative: This is a 64-year-old female with history of hypertension, GERD, diabetes who presents to the ED for chest tightness. Patient states that 2 days ago, she had onset of sternal chest tightness onset while she was lying in bed. Denies shortness of breath. She states the pain is worse with deep inspirations. No recent illnesses, denies fevers, chills diarrhea, constipation, abdominal pain, changes in urination. Related Data Home Medications ?Medication ?Instructions ?Recorded ?Confirmed ?Last Taken ?Type amlodipine 5 mg tablet 10 mg PO DAILY 02/16/24 02/16/24 Unknown History Allergies Allergy/AdvReac Type Severity Reaction Status Date / Time enalapril Allergy Mild Unknown Verified 02/16/24 14:39 DIPHENHYDRAMINE HCL Allergy Mild Difficulty Uncoded 02/16/24 14:39 Breathing Review of Systems Review of Systems: Gen.: Denies fevers or chills Eyes: Denies eye pain or visual change ENT: Denies congestion Respiratory: Denies shortness of breath or cough CV: As per HPI GI: Denies abdominal pain nausea, emesis or diarrhea denies burning, urgency, frequency or hematuria Musculoskeletal: Denies back pain or muscle pain Neuro: Denies numbness, tingling, weakness or focal weakness Skin: Denies rash Except as documented, all other systems reviewed and negative PMFSH Past Medical History Medical History Arthritis of both knees Abnormal mammogram of right breast Vitamin D deficiency Breast mass, right Acid reflux Hypertension Surgical History Surgical History History of partial hysterectomy (~1980) History of eye surgery (~2009) History of total knee replacement (~2014) 03/2015 R, 08/2015 L Family History Family History Father Hypertension Social History Social History Smoking status: Never smoker Alcohol intake: never Substance use: never Substance use type: does not use Lack of Transportation: No Lack of Food: Never True Current Housing: I Have Housing Concerned About Future Housing: No Difficulty Paying Gas/Electric Bills: No Difficulty Paying for Meds: No Currently Unemployed: No Education: Bachelor's Degree Difficulty w/ Childcare or Family Care: No Living arrangements: alone Occupation/Education: retired Additional occupation/education comments: Social Security Gender identity (if verbalized by the patient): Female Agree to blood products: Yes Exam Narrative: APPEARANCE: No acute distress, nontoxic, resting in bed EYES: EOMI HEENT: Normocephalic, atraumatic, OMM RESPIRATORY: No respiratory distress Clear to auscultation bilaterally with no rhonchi wheezing or rales. CARDIOVASCULAR: Regular rate and rhythm without murmurs rubs or gallops. Mild ttp to the lower sternum without deformity or crepitus ABDOMINAL: Soft, nontender, nondistended, no rebound or guarding MUSCULOSKELETAl: Moves all extremities. No clubbing, cyanosis or edema. NEURO: Awake and alert. Following commands, speech normal, no focal deficits SKIN:: Warm, dry. No rashes lesions or abrasions PSYCHIATRIC: Normal affect/mood, Course Vital Signs Vital signs: Vital Signs Pulse Rate 80 11/30/24 18:09 Respiratory Rate 20 11/30/24 18:09 Blood Pressure 157/88 H 11/30/24 18:09 Pulse Oximetry 98 11/30/24 18:09 Oxygen Delivery Room Air 11/30/24 18:09 Pulse Rate 72 11/30/24 20:18 Respiratory Rate 16 11/30/24 20:18 Blood Pressure 139/80 11/30/24 20:18 Pulse Oximetry 98 11/30/24 20:18 Oxygen Delivery Room Air 11/30/24 18:09 MDM - Chest Pain MDM Narrative Medical decision making narrative: 64-year-old female who presented to the ED for chest tightness for the past couple days. On initial evaluation, patient was no acute distress, afebrile, hemodynamically stable. Patient's EKGs and labs are without significant high risk changes. Cardiac risk factors reviewed. Patient is felt likely low risk for ACS and reasonable for further risk stratification testing as an outpatient. Pain was not sudden or maximal in onset without tearing or ripping quality. No other signs of symptoms suggest aortic dissection. No pneumonia seen on evaluation today. Patient is felt to be a reasonable candidate for continued evaluation as an outpatient. She had improvement of her symptoms with Lidoderm and Toradol. Blood pressure remained relatively controlled. Patient was deemed appropriate for discharge at this time. 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 Patient was agreeable to this plan. Given strict return precautions. Differential Diagnosis Differential diagnosis: Likely unstable angina pectoris, atypical chest pain, costochondritis, chest pain and other (Hypertensive urgency/emergency) Lab Data Attestation: I reviewed the patient's lab results. 11/30/24 18:25 11/30/24 18:25 Labs: Lab Results 11/30/24 Range/Units 18:25 WBC 8.4 (4.5-10.0) K/mm3 RBC 4.96 (4.2-5.4) M/mm3 Hgb 13.7 (12.0-15.0) g/dL Hct 41.2 (37.0-47.0) % MCV 83.1 (80-100) fl MCH 27.6 (26-34) pg MCHC 33.3 (32-36) g/dl RDW 16.3 H (11.5-14.5) % Plt Count 323 (150-375) k/mm3 MPV 9.2 (7.4-10.4) fl Immature Gran % (Auto) 0.4 (0-0.5) % Neut % (Auto) 60.0 (45.5-73.1) % Lymph % (Auto) 30.9 (18.3-44.2) % [place] % (Auto) 6.3 (2.6-8.5) % Eos % (Auto) 2.0 (0-4.4) % Baso % (Auto) 0.4 (0.2-1.2) % Lymph # (Auto) 2.61 (0.9-3.2) K/mm3 [place] # (Auto) 0.5 (0.1-0.6) K/mm3 Eos # (Auto) 0.2 (0-0.3) K/mm3 Baso # (Auto) 0.0 (0.0-0.1) K/mm3 Abs Immat Gran (auto) 0.03 (0.00-0.031) K/mm3 Absolute Neuts (auto) 5.1 (1.3-6.7) K/mm3 Absolute Nucleated RBC 0.000 (0.0-0.012) K/mm3 Nucleated RBC % 0.0 (0.0-0.2) % PT 13.4 (11.1-14.7) Seconds INR 1.0 APTT 29.1 (22.3-36.8) Seconds Sodium 136 L (137-145) mmol/L Potassium 3.7 (3.4-5.0) mmol/L Chloride 104 (98-107) mmol/L Carbon Dioxide 25 (22-30) mmol/L Anion Gap 7 (4-12) mmol/L BUN 14 (7-17) mg/dL Creatinine 0.65 L (0.7-1.0) mg/dL Estim Creat Clear Calc 81 ml/min Estimated GFR > 60 (59 - ) Glucose 100 (65-110) mg/dL Calcium 9.4 (8.4-10.2) mg/dL Total Bilirubin 0.5 (0.2-1.3) mg/dL AST 27 (14-36) U/L ALT 25 (6-35) U/L Alkaline Phosphatase 111 (38-126) U/L Troponin I < 0.012 (0.000-0.034) ng/mL Total Protein 8.2 (6.3-8.2) g/dL Albumin 4.2 (3.5-5.1) g/dL Lipase 40 (23-300) U/L Imaging Data Radiologist's impression: Impressions Chest X-Ray 11/30/24 18:22 IMPRESSION: 1: NO ACUTE CARDIOPULMONARY DISEASE. ECG Data EKG #1: Attestation: I personally reviewed and interpreted this ECG as follows: ECG completion date: 11/30/24 ECG completion time: 18:10 Interpretation: Normal sinus rhythm rate of 80, left axis deviation, normal intervals, no acute ST or T-wave changes. Discharge Plan Discharge Clinical Impression: Hypertension, Acute costochondritis Patient Disposition: Home Condition: Stable Instructions: Antibiotic Form, Costochondritis (ED) Additional Instructions: Lab work and imaging showed no evidence of pneumonia or heart damage at this time. For pain, discomfort or temperature greater than or equal to 100.8 ?F please alternate the following 2 medications as needed. First medication- acetaminophen/Tylenol- 1000mg every 6-8 hours as needed for above indications. Second medication- ibuprofen/Motrin-600mg every 6-8 hours as needed for above indication. Follow up with your PCP in the next week for reevaluation. Return to the ED for new or worsening symptoms. Patient Language: Ecuadorean Prescriptions: No Action amlodipine 5 mg tablet 10 mg PO DAILY omeprazole 40 mg capsule,delayed release(DR/EC) 40 mg PO DAILY Qty: 30 1RF losartan 100 mg tablet 100 mg PO DAILY Qty: 90 1RF carvedilol 12.5 mg tablet See Rx Instructions .ROUTE .COMPLEX Qty: 180 1RF Dose Instruction: TAKE 1 TABLET BY MOUTH EVERY 12 HOURS WITH FOOD OR A MEAL Rx Instructions: TAKE 1 TABLET BY MOUTH EVERY 12 HOURS WITH FOOD OR A MEAL pravastatin 10 mg tablet See Rx Instructions .ROUTE .COMPLEX Qty: 90 2RF Dose Instruction: TAKE 1 TABLET BY MOUTH DAILY Rx Instructions: TAKE 1 TABLET BY MOUTH DAILY Follow-up/Referrals: Anton,MD Zoey [Primary Care Provider, Unknown]
[2024-11-30 19:00] VITALS: BP 131/90; PULSE 75; RESP 16; O2SAT 100
[2024-11-30 19:04] LABS: INR 1.0; Prothrombin Time 13.4 Seconds (11.1-14.7)
[2024-11-30 19:05] LABS: Partial Thromboplastin Time 29.1 Seconds (22.3-36.8)
[2024-11-30] MEDS: LIDOCAINE 5% PATCH 1 PATCH TRANSDERM (19:19)
[2024-11-30] MEDS: KETOROLAC 30 MG/ML VIAL (*BKC) IV PUSH (19:19)
[2024-11-30 20:18] VITALS: BP 139/80; PULSE 72; RESP 16; O2SAT 98
== END 2024-11-30 20:20 | disposition home or self-care (01) ==
PROVIDERS: Emergency Provider Student in an Organized Health Care Education/Training Program; PCP Internal Medicine
DX: M94.0 Chondrocostal junction syndrome [Tietze] (principal); I10 Essential (primary) hypertension; E11.9 Type 2 diabetes mellitus without complications; E55.9 Vitamin D deficiency, unspecified; K21.9 Gastro-esophageal reflux disease without esophagitis; M17.0 Bilateral primary osteoarthritis of knee; Z96.653 Presence of artificial knee joint, bilateral; Z90.711 Acquired absence of uterus with remaining cervical stump; Z79.899 Other long term (current) drug therapy; R94.31 Abnormal electrocardiogram [ECG] [EKG]
CPT/HCPCS: 36415; 71046; 80053; 83690; 84484; 85025; 85610; 85730; 93005; 96374; 99284; A9270; J1885